=== PATIENT | male | born 1990 | race Two or more races ===

== ENCOUNTER 2019-06-04 20:35 | Emergency (ER) | payer OTHER ==
[~2019-06-04] VITALS: Ht 165.1 cm; Wt 63.5 kg
[~2019-06-04 20:35] MED LIST: LEVSIN/SL0.125 MG SL; PEPCID40 MG PO
== END 2019-06-04 22:33 | disposition home or self-care (01) ==
LOC: ER 20:35
DX: B34.9 Viral infection, unspecified (principal); F06.4 Anxiety disorder due to known physiological condition